=== PATIENT | male | born 1985 | race Caucasian/White ===

== ENCOUNTER → 2021-04-01 11:39 | Outpatient (BNVA) | payer OTHER, SELFPAY | PROVIDERS: Visit Provider Physician Assistant Medical | DX: S61.011A Laceration without foreign body of right thumb without damage to nail, initial encounter (principal); W25.XXXA Contact with sharp glass, initial encounter | CPT/HCPCS: 12001; 99203 ==

== ENCOUNTER → 2021-04-04 11:32 | Outpatient (BNVA) | payer OTHER, SELFPAY | PROVIDERS: Visit Provider Physician Assistant Medical | DX: S61.011D Laceration without foreign body of right thumb without damage to nail, subsequent encounter (principal) | CPT/HCPCS: 99213 ==

== ENCOUNTER → 2021-04-08 14:40 | Outpatient (BNVA) | payer OTHER, SELFPAY | PROVIDERS: Visit Provider Physician Assistant | DX: S61.011D Laceration without foreign body of right thumb without damage to nail, subsequent encounter (principal); X58.XXXD Exposure to other specified factors, subsequent encounter; Z48.02 Encounter for removal of sutures | CPT/HCPCS: 99212; 99213 ==

== ENCOUNTER 2022-07-31 15:41 | Emergency (ER) | payer MEDICAID, SELFPAY ==
[2022-07-31 15:54] VITALS: BP 122/82; BP 99/51; PULSE 78; PULSE 92; RESP 20; TEMP 36.7; O2SAT 96; O2SAT 98; BMI 23.6
--- NOTE | 2022-07-31 16:01 | ED.GENADULT ---
HPI - General Adult General Chief complaint: Syncope Stated complaint: possible od Source: patient and EMS Mode of arrival: EMS Limitations: other (Patient poor historian, story changed multiple times throughout my history taking.) History of Present Illness HPI narrative: This is a 36-year-old male history of polysubstance abuse on methadone presenting to the emergency department via EMS, patient tells me does not know why he is here he tells me his family made him come. EMS reports an unwitnessed syncopal episode. Patient tells me he does not need to be here he denies any medical complaints. I asked him if he fell he tells me does not now. I asked him if he used any drugs he said no. He reports alcohol use tells me his last drink was prior to arrival, tells me it 2-3 drinks however before that he told nurse he had 1, no history of alcohol withdrawal seizures. Patient alert and oriented x4 upon history taking. Requesting to leave. Denies chest pain, shortness of breath, fevers, chills, headache, vision changes, dizziness or weakness. Related Data Allergies Allergy/AdvReac Type Severity Reaction Status Date / Time hydrocodone [HYDROCODONE] Allergy Unknown HIVES Unverified 02/19/20 16:51 Review of Systems Review of Systems: Constitutional : No Weight loss, No Fever, No Chills, No Fatigue, No Malaise ENT/Mouth : No sore throat, No Rhinorrhea Eyes: No Eye Pain, No Swelling, No Redness Cardiovascular : No Chest Pain, No SOB, No Dyspnea on Exertion, No Orthopnea, No Edema, No Palpitations Respiratory : No Cough, No Sputum, No Wheezing Gastrointestinal : No Nausea, No Vomiting, No Diarrhea, No Constipation, No abdominal Pain, No Hematochezia, No Melena Genitourinary : No Dysuria, No Urinary Frequency, No Hematuria, Musculoskeletal : No joint pain, No Myalgias, No Joint Swelling Skin : No Skin Lesions, No rash Neuro : No Weakness, No Numbness, No Dizziness, No Headache Psych : No Anxiety/Panic, No Depression Heme/Lymph: No Bruising, No Bleeding,No Lymphadenopathy All other systems reviewed and are negative Yes all other systems are reviewed and are negative PMFSH Past Medical History Attestation statement: The following information was validated with the patient. Source: old records reviewed and nursing notes reviewed Physical Exam ED Vital Signs: Vital Signs - 24 hr 07/31/22 15:54 Temperature 98.1 F Pulse Rate 78 Respiratory Rate 20 Blood Pressure 99/51 L Pulse Oximetry 96 Oxygen Delivery Method Room Air BMI result Body Mass Index 23.6 Vital signs stable Appearance: Alert.? Oriented X3.? No acute distress.? Head: Normocephalic, + contusion noted to the left side of head with abrasions throughout head and neck, no step-offs or deformities Eyes: Pupils equal, round and reactive to light.? Bilateral pupils pinpoint however but reactive. ENT: Pharynx normal.? Neck: Normal inspection.? Neck supple.? CVS: Normal heart rate and rhythm.? Pulses normal.? Respiratory: No respiratory distress.? Breath sounds normal.? Abdomen: Soft and nontender.? Skin: Skin warm and dry.? Normal skin color.? Normal skin turgor.? Extremities: No lower extremity edema.? No calf ttp. 5/5 strength to bilateral upper and lower extremities Neuro: Oriented X 3.? No motor deficit.? No sensory deficit. CN 2-12 intact Medical Decision Making Medical Decision Making MDM Narrative: 36-year-old male presents via ambulance, patient tells me he does not know why he is here, according to EMS he had an unwitnessed syncopal episode however patient denies Physical examination with contusion to left side of head, abrasions to head and neck. Patient alert and oriented x4. Ambulating with steady gait. No focal neuro deficits. GCS of 15. NIH stroke scale 0. I was concerned for intracranial hemorrhage, syncope, vasovagal syncope, possible electrolyte abnormalities versus polysubstance abuse. Patient poor historian unclear history. Plan was to scan patient had an obtain basic laboratory studies as well as substance use screening as well substance use disorder evaluation. Patient refusing he does not want medical workup he tells me just wants water. I explained to him that if he left he would be against medical advice. Patient tells me he is leaving he tells me he is only here because of his family in tells me does not elaborate on this. Patient signed out against medical advice and refused all further treatment and evaluation Differential Diagnosis Differential Diagnoses: The differential diagnosis associated with the presentation includes I was concerned for intracranial hemorrhage, syncope, vasovagal syncope, possible electrolyte abnormalities versus polysubstance abuse. Admission/Observation Consideration of admission/observation: Escalation of care including admission/observation considered Likely not indicated Core Measures AMI core measures followed: Yes Measure exclusions: not indicated Critical Care Time Critical Care Time Critical Care Time: No Discharge Plan Discharge Clinical Impression: Gender bias, Fall, Concussion with loss of consciousness, Contusion, Left against medical advice Patient Disposition: Home, Self-Care Instructions: Concussion (ED), Post Concussion Syndrome (ED), Fall Prevention (ED) Additional Instructions: Take your medications as prescribed. If you were prescribed antibiotics today, it is important that you take your medication to their entirety, do not skip any doses, do not finish them early. Follow-up with your primary care provider this week. Return to the emergency department with new or worsening symptoms. Such as fevers, chills, chest pain, shortness of breath, nausea, vomiting, dizziness, headache, vision changes, lethargy In case of emergency call 911 He left against medical advice risks include , stroke, head bleed, heart attack, worsening symptoms. Referrals: ED Physician,Generic [Emergency Provider] - 2 days Interventions: ED Discharge Assessment Last Done: 07/31/22 16:00
== END 2022-07-31 16:10 | disposition home or self-care (01) ==
LOC: HO.ED 16:09
PROVIDERS: Emergency Provider Student in an Organized Health Care Education/Training Program
DX: S06.0XAA Concussion with loss of consciousness status unknown, initial encounter (principal); S00.03XA Contusion of scalp, initial encounter; S00.91XA Abrasion of unspecified part of head, initial encounter; S10.91XA Abrasion of unspecified part of neck, initial encounter; W19.XXXA Unspecified fall, initial encounter; F19.10 Other psychoactive substance abuse, uncomplicated; F11.20 Opioid dependence, uncomplicated; Y93.9 Activity, unspecified; Y92.019 Unspecified place in single-family (private) house as the place of occurrence of the external cause; Y99.9 Unspecified external cause status
CPT/HCPCS: 99282

== ENCOUNTER 2022-10-24 14:21 | Emergency (ER) | payer OTHER, MEDICAID, SELFPAY ==
--- NOTE | ~2022-10-24 | XR_ITS ---
EXAMINATION: XR LUMBOSACRAL SPINE CLINICAL INFORMATION: Low back pain COMPARISON: Previous x-ray April 2006 TECHNIQUE: Three views of the lumbosacral spine. FINDINGS: There is mild curvature of the lumbar spine to the left. Bone alignment is otherwise normal. No fracture or dislocation. Normal disc spaces. Mild degenerative spondylosis at L3-L4 and L4-L5. Lower lumbar spine facet arthritis. XR/XR lumbar spine 2-3V IMPRESSION: Mild curvature of the lumbar spine to the left and degenerative changes.
[2022-10-24 14:34] VITALS: BP 138/103; PULSE 88; RESP 18; TEMP 36.8; O2SAT 98; BMI 24.4
--- NOTE | 2022-10-24 14:35 | ED_ITS ---
HPI - Back Pain/Injury General Chief Complaint: Back Pain/Injury Stated Complaint: back pain/work inj Time Seen by Provider: 10/24/22 16:42 History of Present Illness HPI Narrative: patient complains of back pain over the last 4 days since heavy lifting at work on Sunday, the pain is right-sided back pain radiating down the right leg with some tingling but no numbness or loss of sensation no weakness no change to bowel or bladder no incontinence no dysuria no abdominal pain no chest pain no abdominal painno other injury Related Data Previous Rx's Medication Instructions Recorded acetaminophen 500 mg tablet 1,000 mg PO QID PRN pain #30 tabs 10/24/22 cyclobenzaprine 5 mg tablet 5 mg PO TID PRN muscle spasm #14 10/24/22 tabs ibuprofen 600 mg tablet 600 mg PO Q6H PRN pain #20 tabs 10/24/22 prednisone 20 mg tablet 60 mg PO DAILY 3 days #9 tabs 10/24/22 Allergies Allergy/AdvReac Type Severity Reaction Status Date / Time hydrocodone [HYDROCODONE] Allergy Unknown HIVES Unverified 02/19/20 16:51 [facility] Past Medical History Source: nursing notes reviewed Social History Social History Advance Directives: No Advance Directives Information Provided: No Physical Exam Vital Signs: Vital Signs: Last Vital Signs Temp 98.3 F 10/24/22 14:34 Pulse 88 10/24/22 14:34 Resp 18 10/24/22 14:34 BP 138/103 H 10/24/22 14:34 Pulse Ox 98 10/24/22 14:34 O2 Del Method Room Air 10/24/22 14:34 BMI result Body Mass Index 24.4 general appearance no distress Head is normocephalic atraumatic Neck is supple nontender Respiratory no distress Chest wall nontender Abdomen soft nontender The back had lower lumbar paraspinal soft tissue tenderness no focal bony tenderness, there is also some milder left lower back tenderness no focal bony tenderness no CVA tenderness, skin of the back is normal Extremities full range of motion x4 Skin no rash Neuro gait and balance are normal motor is 5/5 x4 and sensation is intact and symmetrical in lower extremities Course Course Course Narrative: RME: 37yo M w/no sig PMHx c/o low back pain radiating down RLE since Sunday s/p pulling at work. denies urinary incontinence/retention, hematuria/dysuria + right-sided lower lumbar paraspinal/MSK tenderness, ambulating with steady gait Lumbar x-ray, Toradol, Lidoderm patch ordered Full HPI, ROS and PE to be performed by primary ED provider. Patient with back pain radiating down the right leg since a lifting injury 4 days ago at work is referred to [facility] and treated with steroid and analgesics There is no loss of sensation no muscle weakness no changes to bowel or bladder no incontinence Medications Administered Discontinued Medications Generic Name Dose Route Start Last Admin Trade Name Freq PRN Reason Stop Dose Admin Ketorolac Tromethamine 30 mg 10/24/22 14:37 10/24/22 16:16 Ketorolac Tromethamine 30 Mg/Ml Vial IM 10/24/22 14:38 30 mg ONCE ONE Administration Lidocaine 1 patch 10/24/22 14:37 10/24/22 16:15 Lidocaine 4 % Patch Adh..Patch TRANSDERMA 10/24/22 14:38 1 patch ONCE ONE Administration Protocol Prednisone 60 mg 10/24/22 18:30 10/24/22 18:32 Prednisone 20 Mg Tablet PO 10/24/22 18:31 60 mg ONCE ONE Administration Discharge Plan Discharge Clinical Impression: Lumbar radiculopathy, Strain of lumbar region Patient Disposition: Home, Self-Care Additional Instructions: you likely have a pinched nerve in the right side of her low back from the lifting injury that happened at work It may be a herniated disc Follow with [facility] for further evaluation and to file your workmen's Comp claim Most back pain and tingling resolves over time but there is no way to tell now Return any time for muscle weakness, incontinence, any worse condition or any concerns Prescriptions: New acetaminophen 500 mg tablet 1,000 mg PO QID PRN (Reason: pain) Qty: 30 0RF cyclobenzaprine 5 mg tablet 5 mg PO TID PRN (Reason: muscle spasm) Qty: 14 0RF ibuprofen 600 mg tablet 600 mg PO Q6H PRN (Reason: pain) Qty: 20 0RF prednisone 20 mg tablet 60 mg PO DAILY 3 Days Qty: 9 0RF Referrals: [facility] [Provider Group] ( work related back injury with pain radiating down right leg after lifting heavy object) Stand Alone Forms: Work/School Release Interventions: ED Discharge Assessment Last Done: 10/24/22 18:30 Discharge Date/Time: 10/24/22 18:33
[2022-10-24] MEDS: Lidocaine 4 % Patch ADH..PATCH 1 PATCH TRANSDERMA (16:15)
[2022-10-24] MEDS: Ketorolac Tromethamine 30 MG/ML VIAL IM (16:16)
--- NOTE | 2022-10-24 16:19 | PC.NURSE ---
[facility] - NEUROS INTACT- AMB INDEPENDENTLY REPORTS LOWER BACK PAIN. NO ISSUES WITH VOIDING OR BM.
[2022-10-24] MEDS: predniSONE 20 MG TABLET 60 MG PO (18:32)
== END 2022-10-24 18:33 | disposition home or self-care (01) ==
PROVIDERS: Emergency Provider Emergency Medicine
DX: S39.012A Strain of muscle, fascia and tendon of lower back, initial encounter (principal); X50.0XXA Overexertion from strenuous movement or load, initial encounter; Y93.9 Activity, unspecified; Y92.69 Other specified industrial and construction area as the place of occurrence of the external cause; Y99.9 Unspecified external cause status; M54.16 Radiculopathy, lumbar region
CPT/HCPCS: 72100; 96372; 99284; J1885

== ENCOUNTER 2023-01-28 15:57 | Emergency (ER) | payer OTHER, SELFPAY ==
--- NOTE | 2023-01-28 16:37 | ED_ITS ---
HPI - Back Pain/Injury General Chief Complaint: Back Pain/Injury Stated Complaint: back pain Time Seen by Provider: 01/28/23 17:31 Source: patient Mode of arrival: ambulatory Limitations: no limitations History of Present Illness HPI Narrative: Patient is a 37-year-old male presenting to the emergency department with complaint of worsening left lower back pain. States symptoms began approximately 3 days ago but when he bent forward to pick[employer] his child's toy earlier today he felt a popping sensation and increased pain. Reports pain intermittently radiating down left leg with associated numbness and tingling. States that he was able to hike up and down [employer] after worsening of pain today but had difficulty. States that he injured his right lower back at work in October of this year, but injury was to his right lower back. He denies any falls or other trauma since that time. He denies any fevers. He denies any saddle anesthesia or bowel or bladder incontinence. MD elicited complaint: back pain Pertinent past history: prior back pain Onset (ago): day(s) Timing: progressively worsening Severity: severe Similar Symptoms Previously: Yes Quality: sharp Location: left lower back Radiation: left upper leg Exacerbating factors: movement, walking and deep breaths Relieving factors: supine Context: bending Associated symptoms: denies other symptoms Work related injury: No Related Data Previous Rx's Medication Instructions Recorded acetaminophen 500 mg tablet 1,000 mg PO QID PRN pain #30 tabs 10/24/22 cyclobenzaprine 5 mg tablet 5 mg PO TID PRN muscle spasm #14 10/24/22 tabs ibuprofen 600 mg tablet 600 mg PO Q6H PRN pain #20 tabs 10/24/22 prednisone 20 mg tablet 60 mg PO DAILY 3 days #9 tabs 10/24/22 Allergies Allergy/AdvReac Type Severity Reaction Status Date / Time hydrocodone [HYDROCODONE] Allergy Unknown HIVES Verified 01/28/23 16:42 Review of Systems Review of Systems: As per HPI. Yes all other systems are reviewed and are negative Constitutional: Constitutional: Reports as per HPI Physical Exam Vital Signs: Vital Signs: Last Vital Signs Temp 98.1 F 01/28/23 16:38 Pulse 107 H 01/28/23 16:38 Resp 18 01/28/23 16:38 BP 122/61 01/28/23 16:38 Pulse Ox 94 01/28/23 16:38 O2 Del Method Room Air 01/28/23 16:38 BMI result Body Mass Index 25.1 Vital signs have been reviewed and appear to be correct. Blood pressure normal. Heart rate slightly elevated. Respiratory rate normal. Temperature normal. Oxygen saturation normal. Const: General: cooperative, healthy appearing and no acute distress Orientation/consciousness: oriented to person, oriented to place, oriented to time and patient oriented x3 Limitations: no limitations HEENT: Head: Yes normocephalic and Yes atraumatic Ears: external ears normal General nose exam: Normal external nose present Face and sinus: Yes face symmetric Mouth: oropharynx normal and moist mucous membranes Throat: Yes uvula midline Eyes: Pupils: Equal, round and reactive pupils present Neck: Neck: Yes normal visual inspection, Yes no meningeal signs and Yes supple Resp: Effort & Inspection: normal respiratory effort and able to speak in complete sentences Auscultation: clear to auscultation bilaterally Cardio: Rate: regular rate Rhythm: regular rhythm Heart sounds: S1 normal heart sound present and S2 normal heart sound present GI: Palpation (GI): Soft to palpation and nontender Auscultation: normoactive bowel sounds : General: Yes no CVA tenderness Back/Spine/Pelvis: Back: no CVA tenderness Thoracic/Lumbar Spine: thoracic and lumbar spine normal to inspection, thoraco-lumbar ROM normal, pain with thoraco-lumbar ROM, paraspinal muscle tenderness on the left in the upper thoracic and in the mid lumbar, No thoracic spinal tenderness, No lumbar spinal tenderness and straight leg raise positive left Pelvis: no pain with anterior-posterior compression and no pain with lateral compression Skin: General skin exam: elasticity normal and turgor normal Neuro: General: oriented to person, oriented to place, oriented to time, patient oriented x3, gait normal, tone normal, moves all extremities, Normal light touch and pain sensation, no meningeal signs, no focal motor deficits, CN's II-XI intact bilaterally, normal sensation to monofilament and deep tendon reflexes 2+ bilaterally Cranial nerves: Yes Equal, round and reactive pupils present Cognition (Neuro): normal cognition Motor exam (neuro): 5/5 motor strength present throughout, Normal motor muscle tone present throughout and Motor abnormalities not present Sensory Exam: Normal double simultaneous stimulation for sensation Extrem: General: Yes full ROM, Yes no pedal edema and Yes no calf tenderness Psych: Mental Status: mental status grossly normal Affect: normal affect Thought process: Normal thought process present Course Course Course Narrative: This is an RME: Additional HPI, ROS, PE not included below will be deferred to primary provider. Patient is a 37-year-old male who presents emergency department for evaluation of back pain. Pain is present to the left lower back. Reports history of similar pain few months ago but on the right. Radiates to the leg, with numbness. Denies genitourinary symptoms, bladder or bowel dysfunct ion. Ambulatory with steady gait. Plan: Toradol, Lidoderm patch, placed back in WR Medications Administered Discontinued Medications Generic Name Dose Route Start Last Admin Trade Name Freq PRN Reason Stop Dose Admin Ketorolac Tromethamine 30 mg 01/28/23 16:39 01/28/23 17:20 Ketorolac Tromethamine 30 Mg/Ml Vial IM 01/28/23 16:40 Not Given ONCE ONE Lidocaine 1 patch 01/28/23 16:39 01/28/23 17:16 Lidocaine 4 % Patch Adh..Patch TRANSDERMA 01/28/23 16:40 1 patch ONCE ONE Administration Protocol Medical Decision Making Medical Decision Making MDM Narrative: Patient is a 37-year-old male presenting to the emergency department with complaint of worsening left lower back pain. On exam patient is awake, A+Ox3, VS WNL, afebrile, normal neurological exam without focal deficits, no midline spinal tenderness, left lumbar paraspinal tenderness to palpation, positive SLR on left, 5/5 equal strength bilateral lower extremities, DTRs 2+ throughout. Given reported symptoms and physical exam findings, initial differential includes lumbar strain, lumbar radiculopathy. No red flag findings concerning for cauda equina, cord compression, spinal epidural abscess. Do not feel imaging is indicated as patient denies any trauma since prior x-ray in October of this year. Imaging revealed mild curvature of the lumbar spine to the left and degenerative changes at that time. Patient stating that he does not wish to have any medications prescribed for his symptoms, states ?I just want to know what is wrong with my back. ? Discussed with patient that the emergency department evaluates for life-threatening and emergent conditions and that often the etiology of symptoms is not determined while patients are in the emergency department. Discussed with patient that he would need to follow-up with his primary care provider which would likely result in a referral to physical therapy. Offered to prescribe a muscle relaxer, pain medication, prednisone all of which patient declined. Red flag symptoms for which patient should return to the emergency department were discussed. Patient verbalized understanding of and agreement with plan. Differential Diagnosis Differential Diagnoses: The differential diagnosis associated with the presentation includes As per MDM. External Record Review External record reviewed: Inpatient record, Office record and Outpatient record Prescription Management I considered prescription management with: Pain Medication and Other Discharge Plan Discharge Clinical Impression: Strain of lumbar region Patient Disposition: Home, Self-Care Instructions: Acute Low Back Pain (ED) Additional Instructions: You were evaluated in the emergency department today for back pain. Your evaluation did not show signs of medical conditions requiring emergent intervention at this time. We recommended that you use ibuprofen or Tylenol per package directions every 6 hours as needed for pain. If necessary, you can alternate these medications so that you take one medication every 3 hours. For instance, at noon take ibuprofen, then at 3:00 p.m. take Tylenol, then at 6:00 p.m. take ibuprofen. You were offered prescriptions for a muscle relaxer, as steroid, and pain medication, all of which you refused. Please schedule an appointment for follow-up with your primary care physician this week for further evaluation of your symptoms. Return to the emergency department if you experience worsening back pain, difficulty walking, fevers, numbness, tingling, incontinence, groin numbness or tingling, or any other concerning symptoms. Prescriptions: No Action acetaminophen 500 mg tablet 1,000 mg PO QID PRN (Reason: pain) Qty: 30 0RF cyclobenzaprine 5 mg tablet 5 mg PO TID PRN (Reason: muscle spasm) Qty: 14 0RF ibuprofen 600 mg tablet 600 mg PO Q6H PRN (Reason: pain) Qty: 20 0RF prednisone 20 mg tablet 60 mg PO DAILY 3 Days Qty: 9 0RF
[2023-01-28 16:38] VITALS: BP 122/61; PULSE 107; RESP 18; TEMP 36.7; O2SAT 94; BMI 25.1
[2023-01-28] MEDS: Lidocaine 4 % Patch ADH..PATCH 1 PATCH TRANSDERMA (17:16)
--- NOTE | 2023-01-28 17:49 | PC.NURSE ---
pt medicated per MAR- pt refuses toradol at this time. lido patch applied to left lower back
--- NOTE | 2023-01-28 17:54 | PC.NURSE ---
[facility] provider aware
== END 2023-01-28 18:06 | disposition home or self-care (01) ==
PROVIDERS: Emergency Provider Emergency Medicine
DX: S39.012A Strain of muscle, fascia and tendon of lower back, initial encounter (principal); X58.XXXA Exposure to other specified factors, initial encounter; Y93.89 Activity, other specified; Y92.9 Unspecified place or not applicable; Y99.9 Unspecified external cause status
CPT/HCPCS: 99281; 99283

== ENCOUNTER 2023-09-27 09:21 | Emergency (ER) | payer OTHER, SELFPAY ==
[2023-09-27 09:43] VITALS: BP 122/69; BP 124/84; PULSE 106; PULSE 88; RESP 22; TEMP 36.8; O2SAT 97; O2SAT 98; BMI 26.6
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
--- NOTE | 2023-09-27 10:24 | MHC.EDTECH ---
pt refusing blood work at this time. provider notified.
--- NOTE | 2023-09-27 10:40 | PC.NURSE ---
PT ADAMANTLY REFUSED IV PLACEMENT. MLP (MOUNIKA) AWARE.
--- NOTE | 2023-09-27 13:07 | MHC.EDTECH ---
attempted to obtain bloodwork again, patient refused. Provider and RN notified.
[2023-09-27 14:03] VITALS: BP 124/84; PULSE 106; RESP 22; TEMP 36.8; O2SAT 98
== END 2023-09-27 14:04 | disposition left against medical advice (07) ==
PROVIDERS: Emergency Provider Emergency Medicine; PCP Internal Medicine
DX: T40.1X1A Poisoning by heroin, accidental (unintentional), initial encounter (principal); Y92.9 Unspecified place or not applicable; Z71.51 Drug abuse counseling and surveillance of drug abuser
CPT/HCPCS: 99282

== ENCOUNTER 2024-01-08 07:50 | Emergency (ER) | payer OTHER, SELFPAY ==
[2024-01-08 07:55] VITALS: BP 165/99; PULSE 136; RESP 20; TEMP 37.1; O2SAT 94; BMI 25.1
[2024-01-08 08:13] VITALS: BP 178/86; PULSE 131; RESP 18; TEMP 37; O2SAT 96
[2024-01-08 08:14] LABS: MANUAL DIFF FLAG NO
[2024-01-08 08:15] LABS: Basophils Percent Auto 0.4 % (0-2); Eosinophils Absolute Auto 0.1 X10*3/uL (0.0-0.4); Eosinophils Percent Auto 1.5 % (0-4); Hematocrit 37.6 % (42.0-52.0); Hemoglobin 13.4 g/dl (14.0-18.0); Imm Gran Abs Auto 0.02 X10*3/uL (0.00-0.03); Imm Gran Pct Auto 0.3 % (0.0-0.4); Lymphocytes Absolute Auto 1.6 X10*3/uL (1.2-4.9); Lymphocytes Percent Auto 22.1 % (20-40); Mean Corpuscular HGB Conc 35.6 g/dl (31.0-36.0); Mean Corpuscular Hemoglobin 30.4 pg (27.0-33.0); Mean Corpuscular Volume 85.3 fL (80.0-98.0); Monocytes Absolute Auto 0.4 X10*3/uL (0.1-1.2); Monocytes Percent Auto 5.3 % (2-11); Neutrophils Absolute Auto 5.2 x10*3/uL (2.0-8.3); Neutrophils Percent Auto 70.4 % (45-73); Platelet Count 189 X10*3/uL (160-400); Red Blood Count 4.41 X10*6/uL (4.60-5.80); Red Cell Distribution Width 13.3 % (11.0-16.0); White Blood Count 7.3 X10*3/uL (4.8-10.8)
[2024-01-08] MEDS: Lidocaine HCl 1%/Epi 1:100,000 10 ML VIAL INFILTRATI (08:21)
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
[2024-01-08] MEDS: Lactated Ringers 1,000 ML 999 ML IV (08:22)
[2024-01-08 08:32] LABS: Alanine Aminotransferase 72 U/L (0-40); Albumin Level 4.4 g/dL (3.5-5.0); Alkaline Phosphatase 101 U/L (39-117); Anion Gap 20 (12-20); Aspartate Amino Transferase 127 U/L (5-37); Bilirubin Total 0.4 mg/dL (0.0-1.0); Blood Urea Nitrogen 9 mg/dL (9-16); Carbon Dioxide 25 mmol/L (22-29); Chloride 101 mmol/L (96-108); Creatinine Clr Calc Pharmacy 138.5; Estimated Glomerular Filt Rate > 60; Glucose Random 123 mg/dL (60-115); Potassium 3.6 mmol/L (3.3-5.1); Sodium 142 mmol/L (135-145); Total Protein 7.4 g/dL (6.5-8.0)
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
== END 2024-01-08 08:37 | disposition left against medical advice (07) ==
PROVIDERS: Emergency Provider Emergency Medicine
DX: S01.01XA Laceration without foreign body of scalp, initial encounter (principal); S09.90XA Unspecified injury of head, initial encounter; Y00.XXXA Assault by blunt object, initial encounter; Y93.9 Activity, unspecified; Y92.9 Unspecified place or not applicable; Y99.9 Unspecified external cause status
CPT/HCPCS: 12002; 36415; 80053; 85025; 99283; 99284; J7120

== ENCOUNTER 2024-01-09 13:50 | Emergency (ER) | payer OTHER, SELFPAY ==
[2024-01-09 13:56] VITALS: BP 158/94; PULSE 107; RESP 19; TEMP 36.6; O2SAT 98; BMI 23.6
== END 2024-01-09 18:12 | disposition left against medical advice (07) ==
LOC: HO.ED 17:58
PROVIDERS: Emergency Provider Emergency Medicine
DX: R51.9 Headache, unspecified (principal)
CPT/HCPCS: 99281

== ENCOUNTER 2024-01-14 04:11 | Emergency (ER) | payer OTHER, SELFPAY ==
--- NOTE | ~2024-01-14 | XR_ITS ---
EXAMINATION: XR CHEST CLINICAL INFORMATION: Chest pain. COMPARISON: None available. TECHNIQUE: Frontal view of the chest was obtained. FINDINGS: No significant abnormality is noted involving the heart, lungs, mediastinum, bony thorax or soft tissues. XR/XR chest 1V IMPRESSION: Unremarkable examination.
[2024-01-14 04:16] VITALS: BP 150/56; BP 155/105; PULSE 108; PULSE 120; RESP 16; TEMP 36.8; O2SAT 96; O2SAT 98; BMI 23.6
[2024-01-14 04:43] LABS: MANUAL DIFF FLAG NO
[2024-01-14 04:49] LABS: Basophils Percent Auto 0.5 % (0-2); Eosinophils Absolute Auto 0.1 X10*3/uL (0.0-0.4); Eosinophils Percent Auto 2.1 % (0-4); Hematocrit 34.9 % (42.0-52.0); Hemoglobin 12.4 g/dl (14.0-18.0); Imm Gran Abs Auto 0.01 X10*3/uL (0.00-0.03); Imm Gran Pct Auto 0.2 % (0.0-0.4); Lymphocytes Absolute Auto 0.8 X10*3/uL (1.2-4.9); Lymphocytes Percent Auto 18.9 % (20-40); Mean Corpuscular HGB Conc 35.5 g/dl (31.0-36.0); Mean Corpuscular Hemoglobin 30.9 pg (27.0-33.0); Mean Platelet Volume 9.2 fL (9.4-12.4); Monocytes Absolute Auto 0.2 X10*3/uL (0.1-1.2); Monocytes Percent Auto 4.6 % (2-11); Neutrophils Absolute Auto 3.2 x10*3/uL (2.0-8.3); Neutrophils Percent Auto 73.7 % (45-73); Platelet Count 150 X10*3/uL (160-400); Red Blood Count 4.01 X10*6/uL (4.60-5.80); Red Cell Distribution Width 13.5 % (11.0-16.0); White Blood Count 4.4 X10*3/uL (4.8-10.8)
[2024-01-14 04:50] LABS: D Dimer High Sensitivity 213 NG/ML
[2024-01-14 04:59] LABS: Alanine Aminotransferase 87 U/L (0-40); Albumin Level 4.3 g/dL (3.5-5.0); Alkaline Phosphatase 122 U/L (39-117); Anion Gap 18 (12-20); Aspartate Amino Transferase 141 U/L (5-37); Bilirubin Direct < 0.2 mg/dL (0.0-0.5); Bilirubin Total 0.2 mg/dL (0.0-1.0); Blood Urea Nitrogen 9 mg/dL (9-16); Calcium 9.4 mg/dL (8.4-10.2); Carbon Dioxide 24 mmol/L (22-29); Chloride 100 mmol/L (96-108); Creatinine Clr Calc Pharmacy 153.2; Estimated Glomerular Filt Rate > 60; Glucose Random 128 mg/dL (60-115); Lipase 57 U/L (8-78); Potassium 3.2 mmol/L (3.3-5.1); Sodium 139 mmol/L (135-145); Total Protein 7.3 g/dL (6.5-8.0)
[2024-01-14 05:02] LABS: Troponin-I High Sensitivity 2.9 ng/L (<3.5-35.0)
[2024-01-14 05:02] LABS: B Type Natriuretic Peptide 10 pg/mL (<100)
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
[2024-01-14] MEDS: LORazepam 1 MG TABLET PO (05:26)
[2024-01-14 05:41] LABS: Appearance Urine Clear; Color Urine Yellow; Glucose Urine UA Negative (Negative); Leukocyte Esterase Urine Trace (Negative); Nitrite Urine Negative (Negative); PH 6.5 (5.0-9.0); UMIC TRIGGER UACC YES; Urine Blood Negative (Negative); Urine Ketones Negative (Negative); Urine Protein Negative (Neg-Trace)
[2024-01-14 05:43] LABS: Bacteria Urine None Seen (None Seen); Hyaline Casts Urine 0-2 /LPF (0-2); RBC Urine 0-2 /HPF (0-2); Squamous Epithelial Cell Urine 0-2 /HPF (0-2); WBC Urine 0-5 /HPF (0-5)
[2024-01-14 06:00] VITALS: BP 109/65; PULSE 110; RESP 16; TEMP 37.1; O2SAT 94
[2024-01-14 06:29] VITALS: BP 116/78; PULSE 115; O2SAT 97
--- NOTE | 2024-01-14 07:00 | PC.NURSE ---
report given to Jadon NINA
--- NOTE | 2024-01-14 07:08 | ECG_ITS ---
Test Reason : CHEST PAIN Blood Pressure : / mmHG Vent. Rate : 117 BPM Atrial Rate : 117 BPM P-R Int : 170 ms QRS Dur : 088 ms QT Int : 336 ms P-R-T Axes : 059 032 026 degrees QTc Int : 468 ms Sinus tachycardia Nonspecific T wave abnormality Abnormal ECG When compared with ECG of 05-DEC-2018 11:24, No significant change was found Referred By: Pamela Martinez Electronically Signed By:SHIRA EDGAR
[2024-01-14 08:42] VITALS: BP 127/85; PULSE 101; RESP 16; TEMP 36.6; O2SAT 99
[2024-01-14 09:02] VITALS: BP 134/100; PULSE 104; RESP 19; TEMP 36.6; O2SAT 97
[2024-01-14 09:13] VITALS: BP 134/100; PULSE 104; RESP 19; TEMP 36.6; O2SAT 97
== END 2024-01-14 09:14 | disposition home or self-care (01) ==
PROVIDERS: Emergency Medicine; Emergency Provider Emergency Medicine Emergency Medical Services
DX: R07.89 Other chest pain (principal); F43.9 Reaction to severe stress, unspecified; F41.9 Anxiety disorder, unspecified; R06.02 Shortness of breath; Z79.899 Other long term (current) drug therapy
CPT/HCPCS: 36415; 71045; 80048; 80076; 81001; 83690; 83880; 84484; 85025; 85379; 93005; 99283; 99284

== ENCOUNTER → 2024-01-14 07:08 | Outpatient (BNV) | payer OTHER, SELFPAY | PROVIDERS: Emergency Provider Emergency Medicine Emergency Medical Services; Visit Provider Internal Medicine | DX: R07.9 Chest pain, unspecified (principal); R00.0 Tachycardia, unspecified; R94.31 Abnormal electrocardiogram [ECG] [EKG] | CPT/HCPCS: 93010 ==

== ENCOUNTER 2024-01-28 21:04 | Emergency (ER) | payer OTHER, SELFPAY ==
--- NOTE | ~2024-01-28 | XR_ITS ---
EXAMINATION: XR CHEST CLINICAL INFORMATION: Chest pain. COMPARISON: Chest radiograph dated January 14, 2024. TECHNIQUE: 2 views of the chest were obtained. FINDINGS: The heart is normal in size. The lungs are clear. The pleural spaces are clear. There is no pneumothorax. No acute osseous abnormality. XR/XR chest 2V IMPRESSION: No acute cardiopulmonary disease. Electronically signed by: Dyllan Marques DO 01/28/2024 10:07 PM EDT
--- NOTE | 2024-01-28 21:27 | ECG_ITS ---
Test Reason : CHEST PAIN Blood Pressure : / mmHG Vent. Rate : 086 BPM Atrial Rate : 086 BPM P-R Int : 154 ms QRS Dur : 086 ms QT Int : 378 ms P-R-T Axes : 064 053 056 degrees QTc Int : 452 ms Normal sinus rhythm Normal ECG When compared with ECG of 14-JAN-2024 04:09, Nonspecific T wave abnormality no longer evident in Inferior leads Nonspecific T wave abnormality no longer evident in Anterolateral leads Referred By: Generic ED Physician Electronically Signed By:PRICILLA GUERRERO
[2024-01-28 21:29] VITALS: BP 162/117; BP 169/101; PULSE 83; PULSE 90; RESP 18; TEMP 36.8; O2SAT 98; O2SAT 99; BMI 24.2
--- NOTE | 2024-01-28 21:39 | ED.CHESTPAIN ---
HPI - Chest Pain General Chief Complaint: Chest Pain Stated Complaint: CP FOR SEVERAL WEEKS Time Seen by Provider: 01/28/24 21:37 Source: patient Mode of arrival: ambulatory Limitations: no limitations History of Present Illness ED Provider: adolfo PAUL narrative: Patient's history of anxiety/PTSD been increased anxious for last 10 days unable to sleep comes here with multiple complaints including chest pain with a sharp was seen here last week for similar situation patient does not have any psychiatrist denies any SI or HI patient denies any substance abuse Related Data Previous Rx's ?Medication ?Instructions ?Recorded acetaminophen 500 mg tablet 1,000 mg (2 x 500 mg) PO QID PRN 10/24/22 pain #30 tabs cyclobenzaprine 5 mg tablet 5 mg PO TID PRN muscle spasm #14 10/24/22 tabs ibuprofen 600 mg tablet 600 mg PO Q6H PRN pain #20 tabs 10/24/22 prednisone 20 mg tablet 60 mg (3 x 20 mg) PO DAILY 3 days 10/24/22 #9 tabs naloxone 4 mg/actuation nasal 4 mg intranasal Q2M PRN opioid 09/27/23 spray (Narcan) overdose #2 ea lorazepam 1 mg tablet (Ativan) 1 mg PO BID PRN anxiety/sleep #20 01/29/24 tabs Allergies Allergy/AdvReac Type Severity Reaction Status Date / Time hydrocodone [HYDROCODONE] Allergy Unknown HIVES Verified 01/28/24 21:34 Review of Systems Review of Systems: Yes all other systems are reviewed and are negative PMFSH Social History Social History Smoked in Last 30 Days: Yes Use of substances other than those prescribed or required for medical reasons: No Advance Directives: No Advance Directives Information Provided: No Do you have a plan to hurt others: No Plan Physical Exam Vital Signs: Vital Signs: Last Vital Signs Temp 97.7 F 01/29/24 00:25 Pulse 97 01/29/24 00:25 Resp 18 01/29/24 00:25 BP 145/98 H 01/29/24 00:25 Pulse Ox 97 01/29/24 00:25 O2 Del Method Room Air 01/29/24 00:25 BMI result Body Mass Index 24.2 Appearance: Alert. Oriented X3. No acute distress. Anxious Eyes: PERRLA, No Nystagmus ENT: Pharynx normal. Oral Mucosa moist Neck: Normal inspection. Neck supple. CVS: Normal heart rate and rhythm. Pulses normal. Respiratory: No respiratory distress. Equal air entry bilateral, no wheezing/rales/rhonchi Abdomen: Soft and nontender. Bowel sounds are present, no mass palpable, no CVA tenderness Skin: Skin warm and dry. Normal skin color. Normal skin turgor. Extremities: No lower extremity edema. No calf tenderness Neuro: Oriented X 3. No motor deficit. No sensory deficit.No cerebellar signs , cranial nerves II-XII intact Medications Administered Discontinued Medications Generic Name Dose Route Start Last Admin Trade Name Freq PRN Reason Stop Dose Admin Lorazepam 2 mg 01/28/24 21:59 01/28/24 22:14 Lorazepam 2 Mg/Ml Vial IVPUSH 01/28/24 22:00 2 mg ONCE ONE Administration Lorazepam 1 mg 01/29/24 00:12 01/29/24 00:19 Lorazepam 1 Mg Tablet PO 01/29/24 00:13 1 mg ONCE ONE Administration Medical Decision Making Medical Decision Making MDM Narrative: Patient has significant anxiety in responded to Ativan will discharge patient home advised to follow with PCP Independent Interpretation I performed an independent interpretation of an: EKG Interpretation: Normal sinus rhythm heart rate 86 normal intervals normal axis no acute ST-T changes no acute ischemia Discharge Plan Discharge Clinical Impression: Anxiety Patient Disposition: Home, Self-Care Instructions: Anxiety (ED) Additional Instructions: Take medication to relax and sleep as prescribed Follow up with your PCP Prescriptions: New lorazepam [Ativan] 1 mg tablet 1 mg PO BID PRN (Reason: anxiety/sleep) Qty: 20 0RF No Action acetaminophen 500 mg tablet 1,000 mg PO QID PRN (Reason: pain) Qty: 30 0RF cyclobenzaprine 5 mg tablet 5 mg PO TID PRN (Reason: muscle spasm) Qty: 14 0RF ibuprofen 600 mg tablet 600 mg PO Q6H PRN (Reason: pain) Qty: 20 0RF prednisone 20 mg tablet 60 mg PO DAILY 3 Days Qty: 9 0RF naloxone [Narcan] 4 mg/actuation spray,non-aerosol 4 mg intranasal Q2M PRN (Reason: opioid overdose) Qty: 2 0RF Rx Instructions: spray 1 dose into ONE nostril; alternate nostrils w each dose until help arrives Interventions: ED Discharge Assessment Last Done: 01/29/24 00:25 Discharge Date/Time: 01/29/24 00:26 Print Language: Slovenian
[2024-01-28] MEDS: LORazepam 2 MG/ML VIAL IVPUSH (22:14)
[2024-01-28 22:23] VITALS: BP 133/88; PULSE 86; RESP 16; O2SAT 98
[2024-01-28 23:21] VITALS: BP 132/82; PULSE 77; RESP 18; TEMP 36.5; O2SAT 99
[2024-01-29 00:10] VITALS: BP 145/98; PULSE 97; RESP 18; O2SAT 97
[2024-01-29] MEDS: LORazepam 1 MG TABLET PO (00:19)
[2024-01-29 00:25] VITALS: BP 145/98; PULSE 97; RESP 18; TEMP 36.5; O2SAT 97
== END 2024-01-29 00:26 | disposition home or self-care (01) ==
PROVIDERS: Emergency Provider Internal Medicine
DX: R07.89 Other chest pain (principal); F41.9 Anxiety disorder, unspecified
CPT/HCPCS: 71046; 93005; 96374; 99284; 99285; J2060